=== PATIENT | female | born 1990 | race Hispanic/Latino ===

== ENCOUNTER 2018-06-04 21:56 | Inpatient (IN) | payer MEDICAID ==
[2018-06-04] MEDS ORDERED: LACTATED RINGERS 1,000 ML ONE (23:11)
[2018-06-05] MEDS ORDERED: SUBLIMAZE IV PRN (00:31)
[2018-06-05] MEDS ORDERED: CERVIDIL VG ONE (00:31)
[2018-06-05] MEDS ORDERED: STADOL IV PRN (00:31)
[2018-06-05] MEDS ORDERED: BRETHINE IVP PRN (00:31)
[2018-06-05] MEDS ORDERED: MINERAL OIL PO PRN (00:31)
[2018-06-05] MEDS ORDERED: XYLOCAINE 2% INFILTRATI ONE (00:31)
[2018-06-05] MEDS ORDERED: ZOFRAN IV PRN (00:31)
[2018-06-05] MEDS ORDERED: BRETHINE SUB-Q PRN (00:31)
--- NOTE | 2018-06-05 00:41 | History and Physical Report ---
History of Present Illness Date of examination: 06/05/18 Date of admission: 06/04/18 21:56 Chief complaint: I'm here for my induction History of present illness: Pt is a 28 year old who presents at 41 weeks for induction of labor due to post dates. She has had an essentially uncomplicated course. Past History Past Medical History: no pertinent history Past Surgical History: no surgical history Social history: single - Obstetrical History Expected Date of Delivery: 05/28/18 Actual Gestation: 41 Week(s) 1 Day(s) : 5 Number of Living Children: 2 Medications and Allergies Allergies Allergy/AdvReac Type Severity Reaction Status Date / Time codeine Allergy Nausea Unverified 06/04/18 21:57 peanut Allergy Nausea Verified 06/04/18 23:13 Review of Systems All systems: negative Constitutional: fatigue Genitourinary: deferred, pelvic pain - Vital Signs Vital signs: Vital Signs Pulse Pulse Ox 93 H 97 06/04/18 22:53 06/04/18 22:53 Temp Pulse Resp BP Pulse Ox 98.2 F 78 18 142/74 97 06/04/18 23:26 06/04/18 23:50 06/04/18 23:26 06/04/18 23:26 06/04/18 23:50 - Physical Exam Breasts: Cardiovascular: Regular rate, Normal S1, Normal S2 Lungs: Positive: Clear to auscultation, Normal air movement Abdomen: Positive: normal appearance, soft, normal bowel sounds. Negative: distention, tenderness Vulva: both: normal Vagina: Positive: normal moisture. Negative: discharge Cervix: Negative: lesion, discharge Uterus: Positive: normal size, normal contour Adnexa: both: normal Anus/Rectum: Positive: normal perianal skin, heme negative. Negative: rectal mass, hemorrhoids Extremities: Deep Tendon Reflex Grade: Normal +2 - Obstetrical Cervical Dilatation: 1 Cervical Effacement Percentage: 50 station: -3 Uterine Contraction Pattern: Absent Results All other labs normal. Assessment and Plan IUP at 41.1 weeks for induction of labor. Admit to L&D. Begin induction with cytotec. Anticipate .
[2018-06-05] MEDS ORDERED: PITOCin/NS 20 UNIT/1000ML DRIP 20 UNITS/1,000 ML BAG IV SCH (01:00)
[2018-06-05] MEDS ORDERED: LACTATED RINGERS 1,000 ML IV SCH (01:00)
[2018-06-05] MEDS ORDERED: PITOCin/NS 30 UNIT/500ML 30 UNITS/500 ML BAG IV SCH ×2 (01:00)
[2018-06-05 01:47] LABS: Hematocrit 32.7 % (30.3-42.9); Hemoglobin 10.5 gm/dl (10.1-14.3); Mean Corpuscular HGB Conc 32 % (30-34); Platelet Count 229 K/mm3 (140-440); Red Blood Count 4.79 M/mm3 (3.65-5.03); Red Cell Distribution Width 15.6 % (13.2-15.2)
[2018-06-05 02:07] LABS: Mean Corpuscular Volume 68 fl (79-97)
[2018-06-05] MEDS ORDERED: NARCAN 2 MG/2 ML IV PRN (22:36)
[2018-06-05] MEDS ORDERED: fentaNYL-BUPIV 2 MCG/ML-0.125% 200 MCG/100 ML BAG EPIDURAL SCH (23:00)
--- NOTE | 2018-06-05 23:46 | Procedure Note ---
OB Delivery Note - Delivery Date of Delivery: 06/05/18 Surgeon: KAREN STARKS - Vaginal Delivery presentation: vertex Delivery position: OA Intrapartum events: none Delivery induction: cervidil Delivery augmentation: pitocin Delivery monitor: external FHT, external uterine Route of delivery: Delivery placenta: spontaneous Delivery cord: nuchal cord, true knot, 3 umbilical vessels Episiotomy: none Delivery laceration: 1st degree Delivery repair: vicryl Anesthesia: epidural Delivery comments: Viable male delivered over intact perineum with loose nuchal easily reduced on the perineum. Weight 8 pounds 12 ounces. Apgars 8,9. placed on maternal abdomen. Cord clamped and cut when done pulsating. Placenta delivered spontaneously and intact with 3vc. Laceration repaired with 2.0 vicryl Pt tolerated procedure well. - Infant A at 1 minute: 8 at 5 minutes: 9 Infant Gender: Male (8 pounds 12 ounces)
[2018-06-06] MEDS ORDERED: METHERGINE IM ONE ×2 (01:02)
[2018-06-06] MEDS ORDERED: PHENERGAN PO PRN (03:18)
[2018-06-06] MEDS ORDERED: LANSINOH TP PRN (03:18)
[2018-06-06] MEDS ORDERED: TYLENOL PO PRN (03:18)
[2018-06-06] MEDS ORDERED: PHENERGAN PR PRN (03:18)
[2018-06-06] MEDS ORDERED: DULCOLAX PR PRN (03:18)
[2018-06-06] MEDS ORDERED: SODIUM CHLORIDE FLUSH SYRINGE 10 ML IV PRN (03:18)
[2018-06-06] MEDS ORDERED: BENADRYL PO PRN (03:18)
[2018-06-06] MEDS ORDERED: MILK OF MAGNESIA PO PRN (03:18)
[2018-06-06] MEDS ORDERED: NORCO 5/325 PO PRN (03:18)
[2018-06-06] MEDS ORDERED: ZOFRAN IV PRN (03:18)
[2018-06-06] MEDS ORDERED: TUCKS PAD TP PRN (03:18)
[2018-06-06] MEDS: IBUPROFEN PO SCH (04:01)
--- NOTE | 2018-06-06 07:20 | Post Anesthesia Evaluation ---
- Post Anesthesia Evaluation Patient Participated: Yes Airway Patent: Yes Stable Respiratory Function: Yes Nausea/Vomiting: No Temp > 96.8F: Yes Pain Manageable: Yes Adequeate Hydration: Yes Anesthesia Complications: No Block Receding Appropriately: Yes Patient on Ventilator: No
[2018-06-06] MEDS: FEOSOL PO SCH ×2 (10:39→21:47)
[2018-06-06] MEDS: PRENATAL VITAMIN PO SCH (10:40)
[2018-06-06] MEDS: COLACE PO SCH ×2 (10:40→21:47)
[2018-06-06 14:15] LABS: Hematocrit 23.9 % (30.3-42.9); Hemoglobin 7.7 gm/dl (10.1-14.3)
[2018-06-06] MEDS: METHERGINE PO SCH (21:47)
[2018-06-07] MEDS: METHERGINE PO SCH (06:13)
[2018-06-07] MEDS: IBUPROFEN PO SCH ×2 (06:13→06:22)
[2018-06-07] MEDS: FEOSOL PO SCH (09:52)
[2018-06-07] MEDS: COLACE PO SCH (09:52)
[2018-06-07] MEDS: PRENATAL VITAMIN PO SCH (09:52)
--- NOTE | 2018-06-07 10:45 | Progress Note ---
Assessment and Plan PPD 1 s/p . Doing well. Patient had some mild episodes of dizziness yesterday that have since resolved. Patient doing well and requesting discharge on today. Subjective - Subjective Date of service: 06/07/18 Interval history: Pt is a 28 year old who presents at 41 weeks for induction of labor due to post dates. She has had an essentially uncomplicated course. Patient reports: appetite normal, voiding normally, pain well controlled, ambulating normally : doing well Objective - Vital Signs Latest vital signs: Vital Signs Temp Pulse Resp BP BP Pulse Ox 06/07/18 07:55 97.5 F L 55 L 20 108/49 100 06/06/18 19:44 98.4 F 66 16 103/73 06/06/18 18:40 98.6 F 68 20 118/69 100 06/06/18 12:52 98.4 F 65 20 94/54 99 Intake and Output 06/06/18 06/07/18 06/07/18 22:59 06:59 14:59 Intake Total 300 Balance 300 Intake: Intake, Free Water 300 - Exam Breasts: Present: deferred Cardiovascular: Present: Regular rate, Normal S1, Normal S2 Lungs: Present: Clear to auscultation, Normal air movement Abdomen: Present: normal appearance, soft, normal bowel sounds Uterus: Present: firm, fundal height below umbilicus - Labs Labs: Abnormal lab results 06/06/18 Range/Units 13:21 Hgb 7.7 L (10.1-14.3) gm/dl Hct 23.9 L D (30.3-42.9) %
--- NOTE | 2018-06-07 10:47 | Discharge Summary ---
Providers - Providers Date of Admission: 06/04/18 21:56 Date of discharge: 06/07/18 Attending physician: KAREN STARKS Primary care physician: KAREN STARKS Hospitalization Reason for admission: induction of labor Delivery: Episiotomy: none Laceration: 1st degree Other procedures: none complications: none Discharge diagnosis: IUP at term delivered baby: male Hospital course: unremarkable Condition at discharge: Good Disposition: DC-01 TO HOME OR SELFCARE Plan - Discharge Medications Prescriptions: Ferrous Sulfate [Feosol 325 MG tab] 325 mg PO BID #60 tablet Ibuprofen [Motrin] 800 mg PO Q8HR PRN #40 tablet PRN Reason: Pain, Moderate (4-6) Oxycodone HCl/Acetaminophen [Percocet 7.5/325 mg] 1 each PO Q6HR PRN #15 tablet PRN Reason: Pain - Provider Discharge Summary Activity: routine, no sex for 6 weeks, no heavy lifting 4 weeks Diet: routine Instructions: routine Additional instructions: [] Smoking cessation referral if applicable(refer to patient education folder for contact #) [] Refer to [facility]'s [facility] Booklet Call your doctor immediately for: * Fever > 100.5 * Heavy vaginal bleeding ( >1 pad per hour) * Severe persistent headache * Shortness of breath * Reddened, hot, painful area to leg or breast * Drainage or odor from incision. * Keep incision clean and dry at all times and follow doctor's instructions regarding bathing/showering Call office to schedule circumcision next week. - Follow up plan Follow up: KAREN STARKS MD [Primary Care Provider] - 6 Weeks
[2018-06-07 18:53] VITALS: BP 111/71
== END 2018-06-07 16:45 | disposition home or self-care (01) | DRG 775 ==
LOC: LD 21:56 → OB 06-06 02:45
PROVIDERS: ADMIT Obstetrics & Gynecology; ATTEND Obstetrics & Gynecology
PROC: 3E0P7VZ Introduction of Hormone into Female Reproductive, Via Natural or Artificial Opening (ICD-10-PCS; principal; 2018-06-05)
PROC: 10E0XZZ Delivery of Products of Conception, External Approach (ICD-10-PCS; 2018-06-05)
PROC: 0HQ9XZZ Repair Perineum Skin, External Approach (ICD-10-PCS; 2018-06-05)
PROC: 3E0R3BZ Introduction of Anesthetic Agent into Spinal Canal, Percutaneous Approach (ICD-10-PCS; 2018-06-05)
PROC: 00HU33Z Insertion of Infusion Device into Spinal Canal, Percutaneous Approach (ICD-10-PCS; 2018-06-05)
DX: O48.0 Post-term pregnancy (principal); O69.81X0 Labor and delivery complicated by cord around neck, without compression, not applicable or unspecified; Z3A.41 41 weeks gestation of pregnancy; O69.2XX0 Labor and delivery complicated by other cord entanglement, with compression, not applicable or unspecified; Z37.0 Single live birth; Z88.5 Allergy status to narcotic agent; Z91.018 Allergy to other foods; O70.0 First degree perineal laceration during delivery
CPT/HCPCS: 36415; 59200; 85014; 85018; 85027; 86850; 86900; 86901; G0378; J2210; J2405; J2590; J7120; Q0169